=== PATIENT | female | born 1960 | race Caucasian/White ===

== ENCOUNTER 2024-01-04 18:20 | Emergency (ER) | payer OTHER ==
[~2024-01-04] VITALS: Ht 167.6 cm; Wt 90.0 kg
[2024-01-04] MEDS ORDERED: HYDROXYZINE HCL25 MG PO (18:32)
[2024-01-04] MEDS ORDERED: DOXEPIN HCL10 MG PO (18:32)
[2024-01-04] MEDS ORDERED: METOPROLOL SUCC50 MG PO (18:33)
[2024-01-04] MEDS ORDERED: LISINOPRIL40 MG PO (18:33)
[2024-01-04] MEDS ORDERED: VICTOZA 2-0.6 MG/0.1 SUB-Q (18:33)
[2024-01-04] MEDS ORDERED: METFORMIN HCL500 MG PO (18:33)
[2024-01-04] MEDS ORDERED: HYDROCODONE BIT/ACETAMINOPHEN 5/325 MG 1 TAB HOME.PACK PO PRN (20:30)
[2024-01-04 20:38] VITALS: BP 160/90
== END 2024-01-04 20:40 | disposition home or self-care (01) ==
LOC: ED 18:20
DX: S16.1XXA Strain of muscle, fascia and tendon at neck level, initial encounter (principal); S40.022A Contusion of left upper arm, initial encounter; S60.012A Contusion of left thumb without damage to nail, initial encounter; I10 Essential (primary) hypertension; E11.9 Type 2 diabetes mellitus without complications; V43.52XA Car driver injured in collision with other type car in traffic accident, initial encounter; Z88.2 Allergy status to sulfonamides; Z79.84 Long term (current) use of oral hypoglycemic drugs; Z79.899 Other long term (current) drug therapy
CPT/HCPCS: 72125; 73060; 73090; 73140; 99284-25; A9270